=== PATIENT | female | born 1990 | race Two or more races ===

== ENCOUNTER 2023-11-24 09:18 | Emergency (ER) | payer OTHER ==
[~2023-11-24] VITALS: Ht 154.9 cm; Wt 63.5 kg
[2023-11-24 09:24] VITALS: BP 141/98; TEMP 98
[2023-11-24 09:43] VITALS: O2SAT 98
== END 2023-11-24 09:43 | disposition home or self-care (01) ==
LOC: ER 09:24
DX: M54.2 Cervicalgia (principal); M54.9 Dorsalgia, unspecified; V89.2XXA Person injured in unspecified motor-vehicle accident, traffic, initial encounter; Y93.89 Activity, other specified; Y92.89 Other specified places as the place of occurrence of the external cause; Y99.8 Other external cause status

== ENCOUNTER 2025-10-17 04:40 | Emergency (ER) | payer OTHER ==
[~2025-10-17] VITALS: Ht 154.9 cm; Wt 61.2 kg
[2025-10-17] MEDS: BENZONATATE 100 MG CAPSULE PO PRN (05:32)
[2025-10-17] MEDS ORDERED: BENZONATATE 100 MG CAPSULE PO ONE (05:32)
[2025-10-17] MEDS ORDERED: BENZ-13 PO (06:12)
[2025-10-17 06:39] VITALS: BP 120/72; TEMP 99.6; O2SAT 99
== END 2025-10-17 06:39 | disposition home or self-care (01) ==
LOC: ER 04:51
DX: B34.9 Viral infection, unspecified (principal); Z20.822 Contact with and (suspected) exposure to COVID-19